=== PATIENT | male | born 1955 | race Caucasian/White ===

== ENCOUNTER 2017-02-11 19:36 | Emergency (ER) | payer OTHER ==
[~2017-02-11] VITALS: Ht 182.9 cm; Wt 98.6 kg
[2017-02-11 19:38] VITALS: BP 111/76
[2017-02-11] MEDS ORDERED: OXYcodone/APAP 5/325MG TABLET PO ONE (20:30)
[2017-02-11] MEDS ORDERED: KETOROLAC 30 MG/1 ML IM ONE (20:30)
[2017-02-11] MEDS ORDERED: ONDANSETRON ODT 4 MG PO ONE (20:30)
[2017-02-11] MEDS ORDERED: KETOROLAC 30 MG/1 ML ONE (20:35)
[2017-02-11] MEDS ORDERED: ONDANSETRON ODT 4 MG ONE (20:35)
[2017-02-11] MEDS ORDERED: OXYcodone/APAP 5/325MG TABLET ONE (20:35)
== END 2017-02-11 21:06 | disposition home or self-care (01) ==
LOC: ED 21:01
DX: S29.011A Strain of muscle and tendon of front wall of thorax, initial encounter (principal); W19.XXXA Unspecified fall, initial encounter; Y93.89 Activity, other specified; Y92.830 Public park as the place of occurrence of the external cause; Y99.9 Unspecified external cause status
CPT/HCPCS: 71101; 96372; 99284; J1885; Q0162